=== PATIENT | female | born 1975 | race Caucasian/White ===

== ENCOUNTER 2024-05-30 16:50 | Emergency (ER) | payer OTHER ==
[~2024-05-30] VITALS: Ht 160 cm; Wt 72.6 kg
[2024-05-30 17:01] VITALS: BP_SYST 131; PULSE 100; RESP 22; TEMP 98.3; O2SAT 98
[2024-05-30 17:39] LABS: BASOPHILS % (AUTO) 0.6 % (0.0-2.0); EOSINOPHILS # (AUTO) 0.1 K/uL (0.0-0.4); HEMATOCRIT 36.3 % (36-48); HEMOGLOBIN 12.5 g/dL (12.0-16.0); LYMPHOCYTES # (AUTO) 1.7 K/uL (1.0-5.5); LYMPHOCYTES % (AUTO) 24.1 % (20.5-51.5); MEAN CORPUSCULAR HEMOGLOBIN 29 pg (27-31); MEAN CORPUSCULAR HGB CONC 35 % (32-36); MEAN CORPUSCULAR VOLUME 85 fL (79.0-98.0); MONOCYTES # (AUTO) 0.4 K/uL (0.0-1.0); MONOCYTES % (AUTO) 6.1 % (1.7-9.3); NEUTROPHILS # (AUTO) 4.9 K/uL (1.8-7.7); NEUTROPHILS % (AUTO) 68.2 % (40.0-70.0); PLATELET COUNT (AUTO) 320 K/uL (130-430); RED BLOOD CELL COUNT(AUTO) 4.28 MIL/uL (4.2-6.2); RED CELL DISTRIBUTION WIDTH 16.2 % (9.0-15.0); WHITE BLOOD COUNT (AUTO) 7.2 K/uL (4.8-10.8)
[2024-05-30] MEDS: ONDANSETRON HCL 4 MG/2 ML VIAL IVP ONE ×2 (17:48→20:17)
[2024-05-30 18:02] LABS: ALANINE AMINOTRANSFERASE 18 U/L (12-78); ALBUMIN 3.8 g/dL (3.4-4.8); ANION GAP 8 (5-15); ASPARTATE AMINOTRANSFERASE 10 U/L (10-37); CALCIUM 9.5 mg/dL (8.4-11.0); CARBON DIOXIDE 30 mmol/L (23-29); CHLORIDE 105 mmol/L (98-107); CREATININE 0.79 mg/dL (0.55-1.30); GFR AFRICAN AMERICAN 100 mL/min (>90); GLUCOSE 106 mg/dL (74-106); POTASSIUM 4.1 mmol/L (3.5-5.1); SODIUM SERUM 143 mmol/L (136-145); TOTAL BILIRUBIN 0.5 mg/dL (0.0-1.0); TOTAL PROTEIN, SERUM 7.3 g/dL (6.4-8.3); UREA NITROGEN, BLOOD 20 mg/dL (8-21)
[2024-05-30 18:03] LABS: SERUM HCG (QUALITATIVE) NEGATIVE (NEGATIVE)
[2024-05-30 18:04] LABS: GFR NON AFRICAN-AMERICAN 83 mL/min (>90)
[2024-05-30 18:13] LABS: AMYLASE 70 U/L (0-100); BILIRUBIN,DIRECT 0.1 mg/dL (0.0-0.3); LIPASE 33 U/L (16-77)
[2024-05-30 18:29] LABS: PROTHROMBIN TIME 9.9 SECS (9.5-12.5)
[2024-05-30] MEDS: NACL 0.9% 1,000 ML IV ONE (19:48)
[2024-05-30] MEDS: MORPHINE 4 MG INJ. 4 MG/ML VIAL IVP ONE (20:18)
[2024-05-30 21:04] LABS: BILIRUBIN,URINE NEGATIVE (NEGATIVE); BLOOD, URINE NEGATIVE (NEGATIVE); CLARITY/URINE CLEAR (CLEAR); COLOR,URINE YELLOW (YELLOW); GLUCOSE,URINE NEGATIVE (NEGATIVE); KETONES,URINE 1+ (NEGATIVE); LEUKOCYTE ESTERASE ,URINE NEGATIVE (NEGATIVE); NITRITE, URINE NEGATIVE (NEGATIVE); PH,URINE 6.5 (5.0-8.0); PROTEIN URINE NEGATIVE (NEGATIVE); UROBILINOGEN,URINE 0.2 (0.2-1.0)
[2024-05-30] MEDS ORDERED: TRAM50TA2 PO (21:19)
[2024-05-30 21:28] VITALS: BP_SYST 125; PULSE 71; RESP 19; TEMP 97.6; O2SAT 96
== END 2024-05-30 21:28 | disposition home or self-care (01) ==
LOC: SED 16:50
DX: R55 Syncope and collapse (principal); R10.30 Lower abdominal pain, unspecified; F41.9 Anxiety disorder, unspecified
CPT/HCPCS: 99285; 74176; 96374; 71045; 96361; 96375; 80076; 80048; 81001; 82150; 84703; 83690; 85025; 85610; 85730; 84484; 36415; 93005; 96376; 83605; 82397; 81003; J2405; J2270; J7030